=== PATIENT | male | born 1975 ===

== ENCOUNTER 2020-10-27 10:54 | Emergency (ER) | payer OTHER ==
[~2020-10-27] VITALS: Ht 165.1 cm; Wt 99.8 kg
== END 2020-10-27 14:50 | disposition home or self-care (01) ==
LOC: ER 10:54
DX: S83.8X1A Sprain of other specified parts of right knee, initial encounter (principal); X50.0XXA Overexertion from strenuous movement or load, initial encounter; Y93.89 Activity, other specified; Y92.89 Other specified places as the place of occurrence of the external cause; Y99.8 Other external cause status